=== PATIENT | female | born 1965 | race Caucasian/White ===

== ENCOUNTER → 2018-07-24 08:49 | Outpatient (CLI) | payer BC, SELFPAY ==
[2018-07-24 13:45] LABS: Alanine Aminotransferase 26 U/L (12-78); Albumin Level 3.6 gm/dL (3.4-5.0); Albumin/Globulin Ratio 0.9 (1.1-1.8); Alkaline Phosphatase 95 U/L (46-116); Anion Gap 16.6 mEq/L (5-15); Aspartate Amino Transferase 16 U/L (15-37); Bilirubin,Total 0.4 mg/dL (0.2-1.0); Blood Urea Nitrogen 21 mg/dL (7-18); Calcium 9.8 mg/dL (8.5-10.1); Carbon Dioxide 26 mmol/L (21.0-32.0); Chloride 101 mmol/L (98-107); Chol/HDL Ratio 3.5 (1-3.5); Cholesterol 259 mg/dL (140-200); Creatinine,Serum 0.72 mg/dL (0.55-1.02); Estimated Glomerular Filt Rate 85 ml/min (>60); GFR (African American) 103 ML/MIN (>60); Globulin 3.9 gm/dl (1.3-3.2); Glucose 77 mg/dL (74-106); HDL Cholesterol 75 mg/dL (29-89); LDL Cholesterol 162 mg/dL (0-130); Potassium 4.6 mmoL/L (3.5-5.1); Sodium 139 mmol/L (136-145); Thyroid Stimulating Hormone 2.33 uIU/ml (0.358-3.740); Total Protein,Serum 7.5 gm/dL (6.4-8.2); Triglycerides 108 mg/dL (30-200); VLDL Cholesterol 22 mg/dL (0-40)
== END ==
PROVIDERS: Visit Provider Nurse Practitioner Family
DX: E03.9 Hypothyroidism, unspecified (principal); I10 Essential (primary) hypertension
CPT/HCPCS: 36415; 80053; 80061; 84443

== ENCOUNTER 2021-01-09 09:59 | Emergency (ER) | payer BC, SELFPAY ==
[2021-01-09 10:00] VITALS: BP 137/66; PULSE 65; RESP 18; TEMP 36.7; O2SAT 98; BMI 46.0
--- NOTE | 2021-01-09 10:33 | XR_ITS ---
PROCEDURE INFORMATION: Exam: XR Left Ankle Exam date and time: 01/09/2021 10:33 AM Age: 55 years old Clinical indication: Pain; Foot; Bilateral; Additional info: Fall TECHNIQUE: Imaging protocol: XR Left ankle. Views: 3 or more views. COMPARISON: No relevant prior studies available. FINDINGS: Bones/joints: There is no evidence of acute fracture.There is no evidence of malalignment or dislocation. Soft tissues: The calf is enlarged IMPRESSION: There is no evidence of acute fracture.There is no evidence of malalignment or dislocation.
--- NOTE | 2021-01-09 10:33 | XR_ITS ---
PROCEDURE INFORMATION: Exam: XR Left Tibia and Fibula Exam date and time: 01/09/2021 10:33 AM Age: 55 years old Clinical indication: Pain; Foot; Bilateral; Additional info: Fall TECHNIQUE: Imaging protocol: XR Left tibia and fibula. Views: 2 views. COMPARISON: No relevant prior studies available. FINDINGS: Bones/joints: There is no evidence of acute fracture.There is no evidence of malalignment or dislocation. Soft tissues: The calf is enlarged IMPRESSION: There is no evidence of acute fracture.There is no evidence of malalignment or dislocation.
--- NOTE | 2021-01-09 10:33 | XR_ITS ---
PROCEDURE INFORMATION: Exam: XR Left Foot Exam date and time: 01/09/2021 10:33 AM Age: 55 years old Clinical indication: Injury or trauma; Blunt trauma and fracture, traumatic; Foot; Bilateral; Closed fracture and other: Fall with edema; Right TECHNIQUE: Imaging protocol: XR Left foot. Views: 3 or more views. COMPARISON: No relevant prior studies available. FINDINGS: Bones/joints: Displaced fracture of the neck of the 4th metatarsal. Nondisplaced fractures of the neck of the 2nd and 3rd metatarsals.. Soft tissues: Soft tissue swelling of the foot IMPRESSION: Displaced fracture of the neck of the 4th metatarsal. Nondisplaced fractures of the neck of the 2nd and 3rd metatarsals..
[2021-01-09 11:21] VITALS: BP 137/66; PULSE 65; RESP 18; TEMP 36.7; O2SAT 98
--- NOTE | 2021-01-09 11:28 | HMH.EDUTC ---
[facility] – [place] Disposition Clinical Impression: Foot fracture, left Qualifiers: Encounter type: initial encounter Fracture type: closed Qualified Code(s): S92.902A - Unspecified fracture of left foot, initial encounter for closed fracture Fracture of second metatarsal bone Qualifiers: Encounter type: initial encounter Fracture type: closed Fracture alignment: nondisplaced Laterality: left Qualified Code(s): S92.325A - Nondisplaced fracture of second metatarsal bone, left foot, initial encounter for closed fracture Fracture of third metatarsal bone Qualifiers: Encounter type: initial encounter Fracture type: closed Fracture alignment: nondisplaced Laterality: left Qualified Code(s): S92.335A - Nondisplaced fracture of third metatarsal bone, left foot, initial encounter for closed fracture Fracture of fourth metatarsal bone Qualifiers: Encounter type: initial encounter Fracture type: closed Fracture alignment: displaced Laterality: left Qualified Code(s): S92.342A - Displaced fracture of fourth metatarsal bone, left foot, initial encounter for closed fracture Disposition: Home, Self-Care Condition on Discharge: Good Instructions: How to Use Crutches, Foot Fracture, DI for Foot Fracture Additional Instructions: Rest the extremity, apply ice for 15 minutes as tolerated three or four times per day, Elevate the extremity as tolerated while you are resting. Take ibuprofen for pain. I sent in a prescription to your pharmacy. Follow up with Dr. Driscoll (podiatry) or your swine extension field specialist that you already see. I put in a referral to Dr. Driscoll, you need to call her office and schedule an appointment or schedule one with your victims advocate clerk/specialist. No weight bearing until you are seen by podiatry and told different. Follow up with your regular doctor. GO TO THE ER FOR ANY WORSENING SYMPTOMS Prescriptions: Ibuprofen [Ibuprofen 800mg Tablet] 800 mg PO Q8HP PRN #30 tab PRN Reason: Moderate Pain Transmission Status: Received by [facility] Referrals: Connor Durbin MD [Primary Care Provider] - Brie Driscoll DPM [Staff Physician] - Forms: Work/School Release Time of Disposition: 12:02 Medical Decision Making - Medical Records Medical records reviewed: No: I reviewed the patient's medical records. - Flex Inquiry Pt receiving controlled substance: No Vital Signs: 01/09/21 10:00 01/09/21 11:21 Temperature 98.0 F 98.0 F Temperature Source Oral Pulse Rate 65 Pulse Rate [Right Brachial] 65 Respiratory Rate 18 18 Blood Pressure 137/66 Blood Pressure [Right Arm] 137/66 Blood Pressure Mean [Right Arm] 89 Blood Pressure Source [Right Arm] Automatic Cuff Blood Pressure Position [Right Arm] Sitting 02 Sat by Pulse Oximetry 98 Oxygen Delivery Method Room Air - Radiology Data #1 Image(s): Foot/Toes Image Reviewed: Yes I reviewed the patient's radiology image, Yes I have reviewed radiologist's interpretation Preliminary Findings: Abnormal PROCEDURE INFORMATION: Exam: XR Left Foot Exam date and time: 01/09/2021 10:33 AM Age: 55 years old Clinical indication: Injury or trauma; Blunt trauma and fracture, traumatic; Foot; Bilateral; Closed fracture and other: Fall with edema; Right TECHNIQUE: Imaging protocol: XR Left foot. Views: 3 or more views. COMPARISON: No relevant prior studies available. FINDINGS: Bones/joints: Displaced fracture of the neck of the 4th metatarsal. Nondisplaced fractures of the neck of the 2nd and 3rd metatarsals.. Soft tissues: Soft tissue swelling of the foot IMPRESSION: Displaced fracture of the neck of the 4th metatarsal. Nondisplaced fractures of the neck of the 2nd and 3rd metatarsals.. [facility] [place] HPI - General Stated complaint: a/o 01/07 fell left foot injury Time Seen by Provider: 01/09/21 11:28 Mode of Arrival: Ambulatory Source of Information: Patient, Spouse Limitations: No [place]
== END 2021-01-09 12:27 | disposition home or self-care (01) ==
PROVIDERS: Emergency Provider Nurse Practitioner Family; PCP Internal Medicine Adolescent Medicine
DX: S92.325A Nondisplaced fracture of second metatarsal bone, left foot, initial encounter for closed fracture (principal); S92.335A Nondisplaced fracture of third metatarsal bone, left foot, initial encounter for closed fracture; S92.342A Displaced fracture of fourth metatarsal bone, left foot, initial encounter for closed fracture; W10.8XXA Fall (on) (from) other stairs and steps, initial encounter; Y92.89 Other specified places as the place of occurrence of the external cause; F33.1 Major depressive disorder, recurrent, moderate; I10 Essential (primary) hypertension
CPT/HCPCS: 29515; 73590; 73610; 73630; 99203; G0463

== ENCOUNTER 2021-08-13 08:19 | Emergency (ER) | payer BC, SELFPAY ==
[2021-08-13] VITALS (7 sets, daily range): BP systolic 118–165; BP diastolic 75–85; PULSE 80–94; RESP 16; TEMP 36.9–37.2; O2SAT 94–99; BMI 53.1
--- NOTE | 2021-08-13 08:42 | XR_ITS ---
PROCEDURE INFORMATION: Exam: XR Chest Exam date and time: 08/13/2021 8:42 AM Age: 55 years old Clinical indication: Shortness of breath; Additional info: Covid positive, SOA TECHNIQUE: Imaging protocol: XR of the chest. Views: 1 view. COMPARISON: CR CXR2V XR chest 2V 11/28/2017 11:35 AM FINDINGS: Lungs: Unremarkable. No consolidation. Pleural spaces: Unremarkable. No pleural effusion. No pneumothorax. Heart/Mediastinum: Unremarkable. No cardiomegaly. Bones/joints: Unremarkable. IMPRESSION: No acute cardiopulmonary disease.
--- NOTE | 2021-08-13 08:47 | HMH.EDGENADL ---
ED Disposition Clinical Impression: COVID-19 virus infection Asthma exacerbation Qualifiers: Asthma severity: moderate Asthma persistence: persistent Qualified Code(s): J45.41 - Moderate persistent asthma with (acute) exacerbation Disposition: Home, Self-Care Condition on Discharge: Good Instructions: DI for Asthma -- Adult, DI for COVID-19 (Suspected or Confirmed ) Additional Instructions: Prednisone as prescribed. Continue nebulizer treatments. Follow-up with your primary care provider if not improving in 1 to 2 days. COVID-19 Isolation: People with COVID-19 should isolate for 5 days. Then if they are asymptomatic (no symptoms) or their symptoms are resolving (without fever for 24 hours), follow that by 5 days of wearing a mask when around others to minimize the risk of infecting people you encounter. If you test positive for COVID-19 and never develop symptoms, day 0 is the day of your positive viral test (based on the date you were tested) and day 1 is the first full day after your positive test. If you develop symptoms after testing positive, your 5-day isolation period must start over. Day 0 is your first day of symptoms. Day 1 is the first full day after your symptoms developed. What to do: Monitor your symptoms. If you have an emergency warning sign (including trouble breathing), seek emergency medical care immediately. Stay in a separate room from other household members, if possible. Use a separate bathroom, if possible. Avoid contact with other members of the household and pets. Don?t share personal household items, like cups, towels, and utensils. Wear a mask when around other people if able. Prescriptions: predniSONE [Prednisone 20mg Tab] 20 mg PO BID #10 tab Transmission Status: Pending to [facility] Referrals: Connor Durbin MD [Primary Care Provider] - - Critical Care Critical Care Time: No Attestation: On 08/13/21, the high probability of a clinically significant, sudden or life threatening deterioration of the following system(s) required my full and direct attention, intervention and personal management. The time I documented below is in addition to time spent performing reported procedures but includes the following listed in this critical care notation. Medical Decision Making - Flex Inquiry Pt receiving controlled substance: No Vital Signs: 08/13/21 08:20 Temperature 99.0 F Temperature Source Oral Pulse Rate [Left Radial] 94 H Respiratory Rate 16 Blood Pressure [Left Arm] 141/80 H Blood Pressure Mean [Left Arm] 100 Blood Pressure Source [Left Arm] Automatic Cuff Blood Pressure Position [Left Arm] Sitting 02 Sat by Pulse Oximetry 99 Oxygen Delivery Method Room Air - Lab Data Lab Results 08/13/21 08:50: WBC 7.2, RBC 4.89, Hgb 13.2, Hct 42.0, MCV 86.0, MCH 26.9 L, MCHC 31.3 L, RDW 15.4, Plt Count 308, MPV 8.4, Neut % (Auto) 57.9, Lymph % (Auto) 32.3, Carroll % (Auto) 5.9, Eos % (Auto) 2.5, Baso % (Auto) 1.5, Neut # (Auto) 4.2, Lymph # (Auto) 2.3, Carroll # (Auto) 0.4, Eos # (Auto) 0.2, Baso # (Auto) 0.1 08/13/21 08:50: Sodium 136, Potassium 3.8, Chloride 98, Carbon Dioxide 31 H, Anion Gap 10.8, BUN 13, Creatinine 0.80, Estimated Creat Clear 67, Estimated GFR 75, Est GFR ( Amer) 90, Glucose 106 H, Calcium 10.8 H, Total Bilirubin 0.5, AST 23, ALT 18, Alkaline Phosphatase 123, Total Protein 7.7, Albumin 4.3, Globulin 3.4 H, Albumin/Globulin Ratio 1.3 Result diagrams: 08/13/21 08:50 08/13/21 08:50 Orders (Tests/Meds): ED MEDICATIONS Generic Name Dose Route Start Last Admin Trade Name Anselmo PRN Reason Stop Dose Admin Diphenhydramine HCl 25 mg 08/13/21 09:45 Diphenhydramine 50mg/Ml Vial IV 08/13/21 16:00 ONCE PRN INFUSION REACTION Hydrocortisone Sodium Succinate 100 mg 08/13/21 09:45 Hydrocortisone Sod Succinate 100mg Vial IV 08/13/21 16:00 ONCE PRN INFUSION REACTION Sodium Chloride 1,000 mls @ 100 ml
[2021-08-13 08:59] LABS: Basophils # 0.1 K/mm3 (0-0.2); Basophils % 1.5 % (0.1-2.0); Eosinophils # 0.2 K/mm3 (0.0-0.4); Eosinophils % 2.5 % (0.1-12.0); Hemoglobin 13.2 g/dL (12.2-16.2); Lymphocytes # 2.3 K/mm3 (0.7-4.5); Lymphocytes % 32.3 % (10-50); Mean Corpuscular HGB Conc 31.3 g/dL (31.8-35.4); Mean Corpuscular Hemoglobin 26.9 pg (27.0-31.2); Mean Platelet Volume 8.4 fl (7.4-10.4); Monocytes # 0.4 K/mm3 (0.1-1.0); Monocytes % 5.9 % (1.7-9.3); Neutrophils # 4.2 K/mm3 (1.8-7.8); Neutrophils % 57.9 % (37.0-80.0); Platelet Count 308 K/mm3 (142-424); Red Blood Count 4.89 M/mm3 (4.20-5.40); Red Cell Distribution Width 15.4 % (11.5-17.5); White Blood Count 7.2 K/mm3 (4.8-10.8)
[2021-08-13 09:08] LABS: Alanine Aminotransferase 18 U/L (12-78); Albumin Level 4.3 g/dl (3.5-5.0); Albumin/Globulin Ratio 1.3 (1.1-1.8); Alkaline Phosphatase 123 U/L (38-126); Anion Gap 10.8 mEq/L (5-15); Aspartate Amino Transferase 23 U/L (14-36); Bilirubin,Total 0.5 mg/dl (0.2-1.3); Blood Urea Nitrogen 13 mg/dl (7-17); Calcium 10.8 mg/dl (8.4-10.2); Carbon Dioxide 31 mmol/L (22.0-30.0); Chloride 98 mmol/L (98-107); Creatinine Clearance Estimated 67 mL/min (50-200); Estimated Glomerular Filt Rate 75 ml/min (>60); GFR (African American) 90 ML/MIN (>60); Globulin 3.4 g/dL (1.3-3.2); Glucose 106 mg/dl (74-100); Potassium 3.8 mmoL/L (3.5-5.1); Sodium 136 mmol/L (136-145); Total Protein,Serum 7.7 g/dl (6.3-8.2)
--- NOTE | 2021-08-13 10:18 | PC.NURSE ---
Sotrovimab infusion being administered at this time while an ER pt.
== END 2021-08-13 12:15 | disposition home or self-care (01) ==
PROVIDERS: Emergency Provider Emergency Medicine; PCP Internal Medicine Adolescent Medicine
DX: J45.41 Moderate persistent asthma with (acute) exacerbation (principal); U07.1 COVID-19
CPT/HCPCS: 71045; 80053; 85025; 96365; 96375; 99283

== ENCOUNTER 2021-11-15 09:33 | Emergency (ER) | payer OTHER, BC, SELFPAY ==
[2021-11-15 09:35] VITALS: BP 149/75; PULSE 87; RESP 18; TEMP 36.7; O2SAT 98; BMI 53.1
--- NOTE | 2021-11-15 09:45 | XR_ITS ---
FINAL REPORT CLINICAL HISTORY: TWISTED IT WHILE WALKING COMPARISON: 01/09/2021 FINDINGS: LEFT ANKLE: Three views of the left ankle were obtained. There is a horizontal lucency through the lateral malleolus worrisome for a nondisplaced fracture. There are mild degenerative changes. There is a plantar calcaneal spur. There is no soft tissue abnormality. IMPRESSION: Lucency through the lateral malleolus worrisome for a nondisplaced fracture. Reviewed, Interpreted and Dictated by Mitul Rey III, MD Transcribed by Venkat Keller Authenticated by Mitul Rey III, MD on 11/15/2021 11:30:03 AM [facility]
--- NOTE | 2021-11-15 09:57 | HMH.EDUTC ---
[facility] [place] Clinical Impression: Ankle sprain Qualifiers: Encounter type: initial encounter Involved ligament of ankle: unspecified ligament Laterality: left Qualified Code(s): S93.402A - Sprain of unspecified ligament of left ankle, initial encounter Disposition: Home, Self-Care Condition on Discharge: Good Instructions: How to Use Crutches, Ankle Sprain, DI for Ankle Sprain, How to Use a Walking Boot Additional Instructions: *weight bearing as tolerated and use crutches to ambulate *RICE, Rest the extremity, Ice 15-20 minutes 3-4 times daily, Compress- wear the cassie wrap as discussed as much as possible to help reduce swelling and pain, Elevate the extremity when at rest *Walking boot is for support and help control swelling, use it except in the shower. Be sure that is not to tight but not to loose either *Elevate when resting *Ibuprofen as directed on package every 6-8 hours as needed for pain an inflammation. If need something more can take Tylenol in between doses of Ibuprofen to help Immediately follow up with your family doctor for new or worsening of symptoms, or no noticeable improvement over the next 3-5 days Stay off foot for next 3-5 days Return if needed follow up with Podiatry or Orthopedics if needed Straight to ER if any life threatening symptoms Referrals: Connor Durbin MD [Primary Care Provider] - As needed Brie Driscoll DPM [Staff Physician] - As needed Diego Sheridan MD [Staff Physician] - Forms: Work/School Release Time of Disposition: 10:15 Medical Decision Making - Flex Inquiry Pt receiving controlled substance: No Flex was queried for this patient: No Vital Signs: 11/15/21 09:35 11/15/21 10:12 Temperature 98.1 F 98.1 F Temperature Source Oral Pulse Rate 87 Pulse Rate [Right Brachial] 87 Respiratory Rate 18 18 Blood Pressure 149/75 H Blood Pressure [Right Arm] 149/75 H Blood Pressure Mean [Right Arm] 99 Blood Pressure Source [Right Arm] Automatic Cuff Blood Pressure Position [Right Arm] Sitting 02 Sat by Pulse Oximetry 98 Oxygen Delivery Method Room Air - Radiology Data #1 Image(s): Ankle Image Reviewed: Yes I reviewed the patient's radiology image area noted on lateral malleolus suspicious for non displaced fracture will place in boot, crutches and wait for official radiology reading Medical Decision Narrative: Patient states that she has a walking boot and crutches at home from previous accident [facility] [place] - General Stated complaint: AO 4/6 fall lt ankle pain Time Seen by Provider: 11/15/21 09:40 Mode of Arrival: Ambulatory Source of Information: Patient Limitations: No Limitations Description of Symptoms (Recalled from Triage Doc. by RN): PATIENT REPORTS SHE WAS WALKING ACROSS THE PARKING LOT THIS AM AND TWISTED HER LEFT ANKLE HEENT Symptoms (Recalled from RN notes): No Resp Symptoms (Recalled from RN notes): No Skin Symptoms (Recalled from RN notes): No MS Symptoms (Recalled from RN notes): Yes Functional Status (Recalled from RN notes): WNL - History of Present Illness Provider Complaint: Patient states that she was walking accross the parking lot this morning when she twisted her left ankle States that every since she has been having pain and swelling in her left ankle so she came in to get it checked out - Related Data Home Medications Medication Instructions Recorded Confirmed Aspirin [Aspir 81] 81 mg PO DAILY 11/28/17 11/28/17 Bisoprolol/Hydrochlorothiazide 1 each PO DAILY 11/28/17 11/28/17 [Bisoprolol-Hctz 10-6.25 mg Tab] Fluticasone/Vilanterol [Breo 1 each IH DAILY 11/28/17 11/28/17 Ellipta 100-25 Mcg INH] Levothyroxine Sodium [Synthroid 0 mcg PO DAILY 11/28/17 11/28/17 25mcg (0.025mg) tablet] Montelukast Sodium [Singulair 10mg 10 mg PO PM 11/28/17 11/28/17 tablet] Vit D3/Folic Acid/B2/B6/B12 1 each PO DAILY 11/28/17 11/28/17 [Folgard Tablet] buPROPion HCL [Wellbutrin Xl] 150 mg PO DAILY 11/28/17 11/28/17 Previou
[2021-11-15 10:12] VITALS: BP 149/75; PULSE 87; RESP 18; TEMP 36.7; O2SAT 98
== END 2021-11-15 10:21 | disposition home or self-care (01) ==
PROVIDERS: Emergency Provider Nurse Practitioner; PCP Internal Medicine Adolescent Medicine
DX: S93.402A Sprain of unspecified ligament of left ankle, initial encounter (principal); I10 Essential (primary) hypertension; E07.9 Disorder of thyroid, unspecified; J45.909 Unspecified asthma, uncomplicated; F32.A Depression, unspecified; Z79.51 Long term (current) use of inhaled steroids; Z79.52 Long term (current) use of systemic steroids; Z79.82 Long term (current) use of aspirin; Z79.899 Other long term (current) drug therapy; Z88.8 Allergy status to other drugs, medicaments and biological substances; X50.1XXA Overexertion from prolonged static or awkward postures, initial encounter
CPT/HCPCS: 73610; 99213; G0463

== ENCOUNTER 2022-04-02 07:07 | Emergency (ER) | payer BC, SELFPAY ==
[2022-04-02] VITALS (10 sets, daily range): BP systolic 136–167; BP diastolic 76–98; PULSE 73–90; RESP 16–18; TEMP 36.8; O2SAT 94–98; BMI 54.9
--- NOTE | 2022-04-02 07:12 | ECG_ITS ---
APPROVED REPORT Exam: Resting ECG HR:84 bpm ECG Measurements Heart Rate [address] 169 P 139 QRSd 77 QRS 119 QT 323 T 124 QTc 365 Conclusion Sinus RHYTHM POSSIBLE RIGHT VENTRICULAR HYPERTROPHY with late r wave progression UNCONFIRMED REPORT Electronically signed by : Connor Durbin MD 04/03/2022 21:28:30
--- NOTE | 2022-04-02 07:17 | XR_ITS ---
FINAL REPORT TECHNIQUE: Chest PA & Lateral CLINICAL HISTORY: shortness of breath, covid+ 7 days ago COMPARISON: 08/13/2021 FINDINGS: 2 views of the chest were performed. The heart size is mildly enlarged. The mediastinum is within normal limits. There is patchy airspace opacity at the left lung base which may represent a small focus of pneumonia. There is scarring or atelectasis in the right lung base. There is no pneumothorax. The bony thorax appears intact. IMPRESSION: Patchy airspace opacity in the left lung base may represent a small focus of pneumonia. Reviewed, Interpreted and Dictated by Jared Camara MD Transcribed by Jessa Leyva Authenticated and . [facility]
--- NOTE | 2022-04-02 07:23 | PC.NURSE ---
Notified crystal in radiology of xray order
--- NOTE | 2022-04-02 07:26 | PC.NURSE ---
pt ambulatory to xray with pelt grader; no complications
[2022-04-02 07:29] LABS: Basophils # 0.1 K/mm3 (0-0.2); Basophils % 0.5 % (0.1-2.0); Eosinophils # 0.1 K/mm3 (0.0-0.4); Eosinophils % 0.5 % (0.1-12.0); Hematocrit 40.3 % (37.0-47.0); Hemoglobin 12.6 g/dL (12.2-16.2); Lymphocytes # 2.6 K/mm3 (0.7-4.5); Lymphocytes % 17.3 % (10-50); Mean Corpuscular HGB Conc 31.3 g/dL (31.8-35.4); Mean Corpuscular Hemoglobin 26.7 pg (27.0-31.2); Mean Corpuscular Volume 85.4 fl (81-99); Mean Platelet Volume 7.8 fl (7.4-10.4); Monocytes # 0.6 K/mm3 (0.1-1.0); Monocytes % 3.9 % (1.7-9.3); Neutrophils # 11.7 K/mm3 (1.8-7.8); Neutrophils % 77.8 % (37.0-80.0); Platelet Count 437 K/mm3 (142-424); Red Blood Count 4.72 M/mm3 (4.20-5.40); Red Cell Distribution Width 15.6 % (11.5-17.5)
--- NOTE | 2022-04-02 07:30 | PC.NURSE ---
Addendum entered by Johanna Cook RN 04/02/22 12:51: actual time was 0735 Original Note: pt and family updated about plans, no needs at this time
[2022-04-02 07:31] LABS: MANUAL DIFFERENTIAL MANUAL DIFFERENTIAL (MANUAL DIFF)
--- NOTE | 2022-04-02 07:33 | PC.NURSE ---
pt returned from radiology with waste handling technician, no complications
[2022-04-02 07:36] LABS: Alanine Aminotransferase 32 U/L (12-78); Albumin Level 4.1 g/dl (3.5-5.0); Albumin/Globulin Ratio 1.1 (1.1-1.8); Alkaline Phosphatase 155 U/L (38-126); Anion Gap 12.5 mEq/L (5-15); Aspartate Amino Transferase 26 U/L (14-36); Blood Urea Nitrogen 19 mg/dl (7-17); Calcium 11.3 mg/dl (8.4-10.2); Carbon Dioxide 28 mmol/L (22.0-30.0); Chloride 103 mmol/L (98-107); Estimated Glomerular Filt Rate 87 ml/min (>60); GFR (African American) 105 ML/MIN (>60); Globulin 3.8 g/dL (1.3-3.2); Glucose 105 mg/dl (74-100); Potassium 3.5 mmoL/L (3.5-5.1); Sodium 140 mmol/L (136-145); Total Protein,Serum 7.9 g/dl (6.3-8.2)
[2022-04-02 07:37] LABS: Bilirubin,Total < 0.1 mg/dl (0.2-1.3)
[2022-04-02 07:41] LABS: Lymphocytes % 15 % (10-50); Monocytes % 4 % (2-9); Neutrophils % 81 % (42-76); Platelet Estimate Slight Increase; RBC Morphology Normal; Total Cells Counted 100
[2022-04-02 07:51] LABS: Troponin I < 0.01 ng/ml (0.00-0.034)
[2022-04-02 08:09] LABS: Lactic Acid 2.1 mmol/L (0.7-2.1)
--- NOTE | 2022-04-02 08:10 | PC.NURSE ---
pt sitting in bed, no needs at this time
--- NOTE | 2022-04-02 08:34 | HMH.EDSOB ---
ED Disposition Clinical Impression: Community acquired pneumonia Qualifiers: Laterality: left Lung location: unspecified part of lung Qualified Code(s): J18.9 - Pneumonia, unspecified organism Asthma with exacerbation Qualifiers: Asthma severity: mild Asthma persistence: unspecified Qualified Code(s): J45.901 - Unspecified asthma with (acute) exacerbation Disposition: Home, Self-Care Condition on Discharge: Good Instructions: Pneumonia-Adult Additional Instructions: Return for worsening shortness of air or other concerns. Off work through and including April 08. Your albuterol nebulizer every 4 hours as needed for shortness of air. Tylenol as needed for fever. Drink plenty of fluids. Avoid exertion. Prescriptions: Albuterol Sulfate [Albuterol 0.083% 2.5mg/3mL neb] 2.5 mg IH Q4-6H PRN 30 Days ml PRN Reason: Dyspnea Albuterol Sulfate [Albuterol 0.083% 2.5mg/3mL neb] 2.5 mg IH Q4-6H #30 each Transmission Status: Received by [facility] Benzonatate [Benzonatate 100mg cap] 100 mg PO BID 10 Days #20 cap Transmission Status: Received by [facility] Doxycycline Monohydrate 100 mg PO BID 10 Days #20 cap Transmission Status: Received by [facility] predniSONE [Prednisone 20mg Tab] 40 mg PO DAILY #7 tab Transmission Status: Received by [facility] Referrals: Connor Durbin MD [Primary Care Provider] - - Critical Care Critical Care Time: No Attestation: On 04/02/22, the high probability of a clinically significant, sudden or life threatening deterioration of the following system(s) required my full and direct attention, intervention and personal management. The time I documented below is in addition to time spent performing reported procedures but includes the following listed in this critical care notation. Medical Decision Making - Medical Records Medical records reviewed: Yes: I reviewed the patient's medical records. - Flex Inquiry Pt receiving controlled substance: No Vital Signs: 04/02/22 07:07 04/02/22 07:32 04/02/22 07:42 Temperature 98.3 F Temperature Source Oral Pulse Rate 87 74 Pulse Rate [Left Radial] 85 Respiratory Rate 18 Blood Pressure 167/93 H Blood Pressure [Right Arm] 151/98 H Blood Pressure Mean Blood Pressure Mean [Right Arm] 115 Blood Pressure Source Automatic Cuff Blood Pressure Source [Right Arm] Automatic Cuff Blood Pressure Position Sitting Blood Pressure Position [Right Arm] Sitting 02 Sat by Pulse Oximetry 95 95 94 L Oxygen Delivery Method Room Air Room Air Room Air 04/02/22 07:56 04/02/22 08:00 04/02/22 08:30 Temperature Temperature Source Pulse Rate 80 79 73 Pulse Rate [Left Radial] Respiratory Rate Blood Pressure 167/93 H 162/86 H 152/89 H Blood Pressure [Right Arm] Blood Pressure Mean 117 111 108 Blood Pressure Mean [Right Arm] Blood Pressure Source Blood Pressure Source [Right Arm] Blood Pressure Position Blood Pressure Position [Right Arm] 02 Sat by Pulse Oximetry 96 97 96 Oxygen Delivery Method 04/02/22 09:00 04/02/22 09:30 04/02/22 10:00 Temperature Temperature Source Pulse Rate 74 73 90 Pulse Rate [Left Radial] Respiratory Rate Blood Pressure 136/76 148/83 H 156/81 H Blood Pressure [Right Arm] Blood Pressure Mean 96 105 102 Blood Pressure Mean [Right Arm] Blood Pressure Source Blood Pressure Source [Right Arm] Blood Pressure Position Blood Pressure Position [Right Arm] 02 Sat by Pulse Oximetry 98 97 97 Oxygen Delivery Method Room Air 04/02/22 10:27 Temperature 98.3 F Temperature Source Pulse Rate 75 Pulse Rate [Left Radial] Respiratory Rate 16 Blood Pressure 156/81 H Blood Pressure [Right Arm] Blood Pressure Mean Blood Pressure Mean [Right Arm] Blood Pressure Source Automatic Cuff Blood Pressure Source [Right Arm] Blood Pressure Position Sitting Blood Pressure Position [Right Arm] 02 Sat by P
[2022-04-02 08:38] LABS: D-Dimer 0.39 ug/mL (0.0-0.5)
[2022-04-02 08:49] LABS: Coronavirus 19, PCR Not Detected (NotDetected); Influenza A, PCR Not Detected (NotDetected); Influenza B, PCR Not Detected (NotDetected)
[2022-04-02 08:57] LABS: INR 0.95 (0.9-1.1); Prothrombin Time 10.8 seconds (10.1-12.5)
--- NOTE | 2022-04-02 09:15 | PC.NURSE ---
Notified respiratory regarding medication change. Spoke with Chichi
--- NOTE | 2022-04-02 09:47 | PC.NURSE ---
ER MD at BS speaking with patient regarding update on POC/results. Spouse at BS
--- NOTE | 2022-04-02 10:17 | PC.NURSE ---
patient receiving IV antibiotics at this time
[2022-04-02 11:59] LABS: Reflex Lactic Add Lactic Reflex
== END 2022-04-02 10:30 | disposition home or self-care (01) ==
PROVIDERS: Emergency Provider Emergency Medicine; PCP Internal Medicine Adolescent Medicine
DX: J18.9 Pneumonia, unspecified organism (principal); J45.901 Unspecified asthma with (acute) exacerbation; J02.9 Acute pharyngitis, unspecified; I10 Essential (primary) hypertension; U07.1 COVID-19; E07.9 Disorder of thyroid, unspecified; Z20.822 Contact with and (suspected) exposure to COVID-19; F32.A Depression, unspecified; Z79.51 Long term (current) use of inhaled steroids; Z79.52 Long term (current) use of systemic steroids; Z79.82 Long term (current) use of aspirin; Z79.899 Other long term (current) drug therapy; Z88.8 Allergy status to other drugs, medicaments and biological substances
CPT/HCPCS: 71046; 80053; 83605; 83880; 84484; 85007; 85025; 85378; 85610; 87040; 93005; 96372; 99284; 99285; C9803; J0696; U0003; U0005

== ENCOUNTER 2023-05-29 18:21 | Emergency (ER) | payer BC, SELFPAY ==
[2023-05-29 18:22] VITALS: BP 144/77; PULSE 104; RESP 26; TEMP 37.1; O2SAT 93; BMI 54.6
--- NOTE | 2023-05-29 18:56 | XR_ITS ---
PROCEDURE INFORMATION: Exam: XR Chest Exam date and time: 05/29/2023 7:01 PM Age: 57 years old Clinical indication: Cough TECHNIQUE: Imaging protocol: Radiologic exam of the chest. Views: 2 views. COMPARISON: CR XR CHEST 2V 02/04/2022 07:18 FINDINGS: Airway: Widespread airway thickening. Lungs: Patchy left lung atelectasis and opacities. Pleural spaces: Unremarkable. No pleural effusion. No pneumothorax. Heart/Mediastinum: Upper limits of normal heart size. Bones/joints: Unremarkable. IMPRESSION: 1. Widespread airway thickening. Please correlate for evidence of viral infection or asthma. 2. Patchy left lung atelectasis and opacities. Consider pneumonia and aspiration pneumonitis. If there is no evidence of infection or of the patient is at high risk for pulmonary malignancy, consider contrast-enhanced CT to exclude malignancy.
--- NOTE | 2023-05-29 18:57 | EXP.UTC ---
Discharge Plan Disposition Patient Disposition: Home, Self-Care Condition: Good Prescriptions Prescriptions: New methylprednisolone [Medrol (Jessee)] 4 mg tablets,dose pack See Rx Instructions .Route .COMPLEX 6 Days Qty: 21 0RF Rx Instructions: taper pack; cefdinir 300 mg capsule 300 mg PO BID Qty: 20 0RF azithromycin [Zithromax Z-Jessee] 250 mg tablet See Rx Instructions .ROUTE .COMPLEX 5 Days Qty: 6 0RF Rx Instructions: For 250 mg dose pack: take 500 mg today (day 1), then 250 mg for 4 days (days 2-5) No Action bisoprolol-hydrochlorothiazide 1 EACH tablet 1 ea PO DAILY aspirin [Aspir-81] 81 MG tablet,delayed release (DR/EC) 81 mg PO DAILY levothyroxine [Synthroid] 25 MCG tablet 25 mcg PO DAILY montelukast 10 MG tablet 10 mg PO PM bupropion HCl [Wellbutrin XL] 150 MG tablet extended release 24 hr 150 mg PO DAILY Folgard 1 EACH tablet 1 ea PO DAILY ipratropium-albuterol 3 ML solution for nebulization 3 ml IH Q6HP PRN (Reason: Shortness Of Breath) 5 Days Qty: 120 0RF albuterol sulfate 2.5 MG/NEB solution for nebulization 2.5 mg IH Q4-6H Qty: 30 0RF Trelegy Ellipta 100-62.5-25 mcg Blister With Device 1 inh INHALATION DAILY Referrals Follow up/Referrals: Connor Durbin MD [Primary Care Provider] - See instructions Activity Restrictions/Add. Instructions Additional Instructions/Restrictions: Start antibiotic today. Be sure to complete entire prescription even if feeling better Monitor temp. Tylenol every 4 hours as needed and / or ibuprofen every 6 hours as needed ( As long as your primary care physician has told you that it ok to take both. For fever/aches/pains ER if no less than 101 despite Tylenol or Motrin Humidifier/vaporizer or hot steamy shower Inhaler every 4-6 hours as needed like we discussed. If unsure how to use it, ask pharmacist to demonstrate how. Should help open airways and improve cough, wheezing, and shortness of breath *Promethazine DM cough syrup will cause drowsiness. No driving, operating machinery or caring for small children after taking it Use your Neb treatments as prescribed *Tessalon Perles will not cause drowsiness but use at bedtime to help stop cough so that you may get some rest. *Start steroid tomorrow. Helps with inflammation therefore, cough and wheezing. Follow directions on the package. Reviewed side effects. Patient reports taking them before. Follow up with your Family Doctor for follow up in a couple of weeks or sooner if no improvement Follow up IMMEDIATELY for new or worsening of symptoms OR no noticeable improvement over the next 48-72 hours. 911 immediately for any life threatening symptoms such as chest pain or difficulty breathing Clinical Impressions Clinical Impression: Pneumonia Qualifiers: Pneumonia type: due to unspecified organism Laterality: left Lung location: unspecified part of lung Qualified Code(s): J18.9 - Pneumonia, unspecified organism Instructions Patient Instructions: Pneumonia-Adult, Azithromycin, Cefdinir Discharge ED Provider: Eve Hou [facility] General Stated complaint: fever, SOA Mode of Arrival: Ambulatory Source of Information: Patient Limitations: No Limitations Time Seen by Provider: 05/29/23 18:57 Description of Symptoms (Recalled from Triage Doc. by RN): strugglinh to breath, and flu like symptoms HEENT Symptoms (Recalled from RN notes): Yes Resp Symptoms (Recalled from RN notes): No Skin Symptoms (Recalled from RN notes): No MS Symptoms (Recalled from RN notes): No Functional Status (Recalled from RN notes): n/a History of Present Illness Provider Complaint: Patient states that she has been having fever, chills and body aches, states that she seen her PCP about a few days ago and he give her a Steriod shot and give her some nebulizer treatments for at home because she was out States that she has a history
[2023-05-29 19:05] LABS: UTC Influenza A Antigen Negative (Negative); UTC Influenza B Antigen Negative (Negative)
[2023-05-29 20:22] VITALS: BP 144/77; PULSE 104; RESP 20; TEMP 37.1; O2SAT 96
== END 2023-05-29 20:22 | disposition home or self-care (01) ==
PROVIDERS: Emergency Provider Nurse Practitioner; PCP Internal Medicine Adolescent Medicine
DX: J18.9 Pneumonia, unspecified organism (principal); R07.1 Chest pain on breathing; R50.9 Fever, unspecified; J45.909 Unspecified asthma, uncomplicated
CPT/HCPCS: 71046; 87635; 87804; 96372; 99212; 99214; G0463; J0696

== ENCOUNTER 2023-12-04 08:43 | Day surgery (SDC) | payer BC, SELFPAY ==
[2023-12-02 10:00] VITALS: BMI 54.9
[2023-12-04 09:20] VITALS: BP 139/76; PULSE 70; RESP 18; TEMP 36.2; O2SAT 98
[2023-12-04] MEDS: LACTATED RINGERS 1000ML 1,000 ML 100 ML IV (09:24)
--- NOTE | 2023-12-04 09:48 | HMH.SCOPE ---
Procedure: Date: 12/04/23 Patient Date of :: 1965 Procedure Performed:: Colonoscopy Indications:: The patient is a 58-year-old who presents for screening colonoscopy Performing Provider:: Chris Olguin MD Referring Provider:: Александр Durbin MD Sedation:: See RN records Procedure:: After placing the patient in the left lateral decubitus position, the colonoscopy was gently inserted into the rectum and under direct visualization advanced to the cecum which was identified by transillumination in the right lower quadrant, identification of the ileocecal valve, appendiceal orifice, and cecal strap. Color, texture, mucosa, and anatomy of the colon were carefully examined with the scope. The colonoscopy was technically difficult secondary to patient body habitus, the patient was difficult to sedate, and became combative during the procedure. Findings:: The quality of the bowel preparation was good. In the ascending colon there was a polyp measuring approximately 10 mm in size. The polyp was sessile. Polyp was removed with a hot snare polypectomy. It was retrieved with a Knowles net. There was a diminutive polyp in the upper rectum. Polyp was removed with a cold forceps. There was mild diverticulosis of the sigmoid colon. Colon appeared normal. Internal hemorrhoids were seen on retroflexion view of the rectum. Impression: Polyp of the ascending colon and rectum Recommendations:: Await pathology results Repeat colonoscopy in 3 years Complications:: None Estimated blood obtained (mL): 0 Colonoscopy Component Colonoscopy Component Was a colonoscopy performed during today's procedure?: Yes Recommended follow up colonoscopy of at least 10 years?: Yes
[2023-12-04 10:01] VITALS: O2SAT 98
--- NOTE | 2023-12-04 10:02 | EXP.ANES.CKL ---
[facility] Disclaimer: The information contained in this section may have been updated after the patient was seen, as this information can be updated by other users. Medical History Pneumonia Bronchitis Asthma Sinus headache Anxiety and depression History of gastroesophageal reflux (GERD) Hemorrhoid Hypothyroid Allergies Surgical History H/O gastric sleeve History of cholecystectomy Family History Other Asthma Cancer Hypertension Social History Smoking Status: Never smoker second hand exposure: No alcohol intake: current substance use type: denies use current occupational status: employed Travel in the last 8 weeks: None household members: spouse housing: house [facility] Anesthesia Checklist Patient Identification Patient Identification: Verbal (Name & ) Structural Data Admitted From: Home Planned Operative Procedure/s: colonoscopy Consent for Planned Operative Procedure(s) Verified: Yes Airway Assessment Mallampati Score:: Class III C-Spine Mobility Assessed: Yes TMJ Mobility Assessed: Yes Dentition: Good Dentition Neurological Assessment Level of Consciousness: Awake, Alert and Appropriate Anesthesia Plan Anesthesia Risk discussed: Yes Anesthesia Plan: Verified ASA Class: III Anesthesia Type: MAC
[2023-12-04 10:32] VITALS: BP 127/67; PULSE 94; RESP 14; TEMP 36.2; O2SAT 96
[2023-12-04 10:42] VITALS: BP 150/71; PULSE 80; RESP 16; O2SAT 99
[2023-12-04 10:52] VITALS: BP 126/68; PULSE 72; RESP 18; O2SAT 98
[2023-12-04 11:02] VITALS: BP 134/61; PULSE 77; RESP 18; O2SAT 99
== END 2023-12-04 11:03 | disposition home or self-care (01) ==
PROVIDERS: PCP Internal Medicine Adolescent Medicine; Visit Provider Internal Medicine
PROC: (CPT 45385; principal; 2023-12-04 10:00)
DX: Z12.11 Encounter for screening for malignant neoplasm of colon (principal); K57.30 Diverticulosis of large intestine without perforation or abscess without bleeding; K64.8 Other hemorrhoids; D12.2 Benign neoplasm of ascending colon; D12.8 Benign neoplasm of rectum
CPT/HCPCS: 45385; 45380; J2704

== ENCOUNTER 2023-12-31 13:00 | Outpatient (CLI) | payer BC, SELFPAY ==
--- NOTE | 2023-12-31 13:04 | XR_ITS ---
FINAL REPORT CLINICAL HISTORY: LUMBAGO W/SCIATICA,CHRONIC PAIN COMPARISON: None FINDINGS: 5 views of the lumbar spine were obtained. There is no evidence of fracture or dislocation. The vertebral alignment is normal. There is moderate degenerative disc disease present at the L4-5 level. There is dense sclerosis of the lumbar facets. No paraspinous soft tissue abnormalities identified. IMPRESSION: Moderate degenerative disc disease at the L4-5 level. Reviewed, Interpreted and Dictated by Jared Camara MD Transcribed by Margret Tee Authenticated and [facility]
== END 2023-12-31 23:59 | disposition home or self-care (01) ==
LOC: RAD 13:01
PROVIDERS: PCP Nurse Practitioner Family; Visit Provider Nurse Practitioner Family
DX: M54.42 Lumbago with sciatica, left side (principal); G89.29 Other chronic pain
CPT/HCPCS: 72110

== ENCOUNTER 2024-01-10 14:04 | Outpatient (CLI) | payer BC, SELFPAY ==
--- NOTE | 2024-01-10 14:04 | CT_ITS ---
FINAL REPORT TECHNIQUE: Axial images were obtained from the lung apex to the mid abdomen by computed tomography. Coronal and sagittal reformatted images were obtained. This study was performed with techniques to keep radiation doses as low as reasonably achievable, (ALARA). Individualized dose reduction techniques using automated exposure control or adjustment of mA and/or kV according to the patient''s size were employed. CLINICAL HISTORY: Abnormal CXR COMPARISON: 05/29/2023 chest x-ray FINDINGS: A few small and borderline in size mediastinal nodes are present. No mediastinal mass or adenopathy is identified. No axillary mass or adenopathy is seen.There is no pericardial or pleural effusion. No pulmonary mass or suspicious nodule is identified. There is mild scarring in the lung bases. No localized pulmonary inflammatory process is noted. The chest wall is intact.Limited images of the upper abdomen are remarkable for a prior gastric bypass. The gallbladder is surgically absent. IMPRESSION: No mass or localized inflammatory process. Reviewed, Interpreted and Dictated by Mitul Rey III, MD Transcribed by Margret Tee Authenticated and [facility]
[2024-01-10 15:20] VITALS: PULSE 89
[2024-01-10] MEDS: ALBUTEROL 0.083% 2.5 MG/3 ML NEB IH (15:20)
== END 2024-01-10 23:59 | disposition home or self-care (01) ==
LOC: RAD 14:04
PROVIDERS: PCP Internal Medicine Adolescent Medicine; Visit Provider Internal Medicine Pulmonary Disease
DX: R91.8 Other nonspecific abnormal finding of lung field (principal); R06.02 Shortness of breath
CPT/HCPCS: 71250; 94060; 94618; 94640; 94726; 94729

== ENCOUNTER 2024-08-04 11:22 | Emergency (ER) | payer BC, SELFPAY ==
--- NOTE | 2024-08-04 12:06 | EXP.UTC ---
Discharge Plan Disposition Patient Disposition: Home, Self-Care Condition: Good Prescriptions Prescriptions: New azithromycin [Zithromax] 250 mg tablet 250 mg PO UD DOSE PK Qty: 6 0RF Rx Instructions: Take two (2) tablets today, then one (1) tablet days #2 thru #5 benzonatate 100 mg capsule 100 mg PO TIDP PRN (Reason: Cough) Qty: 30 0RF methylprednisolone 4 mg Tablets,Dose Pack 4 mg PO DIRECTED 6 Days Qty: 21 0RF Rx Instructions: Take 1 pack as directed for 6 days ipratropium-albuterol 0.5 mg-3 mg(2.5 mg base)/3 mL solution for nebulization 3 ml inhalation QID PRN (Reason: wheezing) Qty: 180 0RF azithromycin [Zithromax] 250 mg tablet 250 mg PO UD DOSE PK Qty: 6 0RF Rx Instructions: Take two (2) tablets today, then one (1) tablet days #2 thru #5 benzonatate 100 mg capsule 100 mg PO TIDP PRN (Reason: Cough) Qty: 30 0RF methylprednisolone 4 mg Tablets,Dose Pack 4 mg PO DIRECTED 6 Days Qty: 21 0RF Rx Instructions: Take 1 pack as directed for 6 days No Action albuterol sulfate 90 mcg/actuation HFA aerosol inhaler 2 puff inhalation Q6H PRN (Reason: Asthma) melatonin 10 mg tablet,chewable 10 mg PO DAILY budesonide-formoterol [Symbicort] 160-4.5 mcg/actuation HFA aerosol inhaler 2 puff inhalation BID 90 Days Qty: 10.2 2RF peg 3350-electrolytes [GaviLyte-G] 236-22.74-6.74 -5.86 gram recon soln 240 ml PO Q10M Qty: 4000 0RF Rx Instructions: follow mailed instructions levothyroxine [Synthroid] 25 MCG tablet 25 mcg PO DAILY montelukast 10 MG tablet 10 mg PO PM bupropion HCl [Wellbutrin XL] 150 MG tablet extended release 24 hr 150 mg PO DAILY Folgard 1 EACH tablet 1 ea PO DAILY ipratropium-albuterol 3 ML solution for nebulization 3 ml inhalation Q6HP PRN (Reason: Shortness Of Breath) 5 Days Qty: 120 0RF hydrochlorothiazide 25 mg tablet 25 mg PO DAILY Referrals Follow up/Referrals: Connor Durbin MD [Primary Care Provider] - See instructions Activity Restrictions/Add. Instructions Additional Instructions/Restrictions: Drink plenty of fluids. Take tylenol or ibuprofen for pain or fever. Take the medications as directed. Follow up with your regular doctor. GO TO THE ER FOR ANY WORSENING SYMPTOMS Clinical Impressions Clinical Impression: Asthma exacerbation, Acute viral syndrome Instructions Patient Instructions: DI for Asthma -- Adult, DI for Viral Syndrome Print Language Print Language: Nigerien Discharge ED Provider: Margarito Bass [facility] HPI General Stated complaint: wheezing, diff breathing Time Seen by Provider: 08/04/24 12:06 Related Data Home Medications ?Medication ?Instructions ?Recorded ?Confirmed bupropion HCl 150 mg 24 hr tablet, 150 mg PO DAILY Depression 11/28/17 01/17/24 extended release (Wellbutrin XL) levothyroxine 25 mcg tablet 25 mcg PO DAILY THYROID 11/28/17 01/17/24 (Synthroid) montelukast 10 mg tablet 10 mg PO PM Allergy symptoms 11/28/17 01/17/24 vit D3-folic acid-vit B2-B6-B12 1 ea PO DAILY PREVENT 11/28/17 01/17/24 2,000 unit-800 mcg-0.32 mg tablet (Folgard) albuterol sulfate 90 mcg/actuation 2 puff inhalation Q6H PRN Asthma 11/25/23 01/17/24 aerosol inhaler melatonin 10 mg chewable tablet 10 mg PO DAILY 11/25/23 01/17/24 hydrochlorothiazide 25 mg tablet 25 mg PO DAILY 12/02/23 01/17/24 Previous Rx's ?Medication ?Instructions ?Recorded ipratropium 0.5 mg-albuterol 3 mg 3 ml inhalation Q6HP PRN Shortness 07/10/19 (2.5 mg base)/3 mL nebulization Of Breath 5 days #120 neb soln peg 3350-electrolytes 236 240 ml PO Q10M Bowel Prep #4,000 mL 11/18/23 gram-22.74 gram-6.74 gram-5.86 gram solution (GaviLyte-G) budesonide-formoterol HFA 160 2 puff inhalation BID 90 days 01/17/24 mcg-4.5 mcg/actuation aerosol #10.2 grams inhaler (Symbicort) azithromycin 250 mg tablet 250 mg PO UD DOSE PK #6 tabs 08/04/24 (Zithromax) azithromycin 250 mg tablet 250 mg PO UD DOSE PK #6 tabs 08/04/24 (Zithromax) benzonatate 100 mg capsule 100 mg PO TIDP PRN Cough #30 caps 08/04/24 benzonatate 100 mg capsule 100 mg PO TIDP PRN Cough #30 caps 08/04/24 ipratropium 0.5 mg-albuterol 3 mg 3 ml inhalation QID PRN wheezing 08/04/24 (2.5 mg base)/3 mL nebulization #180 mL soln methylprednisolone 4 mg tablets in 4 mg PO DIRECTED 6 days #21 tabs 08/04/24 a dose pack methylprednisolone 4 mg tablets in 4 mg PO DIRECTED 6 days #21 tabs 08/04/24 a dose pack Allergies Allergy/AdvReac Type Severity Reaction Status Date / Time moxifloxacin (From AVELOX) Allergy Mild Verified 01/17/24 10:37 [facility] Disclaimer: The information contained in this section may have been updated after the patient was seen, as this information can be updated by other users. Medical History Pneumonia Bronchitis Asthma Sinus headache Anxiety and depression History of gastroesophageal reflux (GERD) Hemorrhoid Hypothyroid Allergies Surgical History H/O gastric sleeve History of cholecystectomy Family History Other Asthma Cancer Hypertension Social History (Updated 01/17/24 @ 10:38 by Christine Knox) Smoking Status: Never smoker second hand exposure: No alcohol intake: current substance use type: denies use current occupational status: employed Travel in the last 8 weeks: Inside the [place] household members: spouse housing: house Have you lived/traveled outside [place] in past 30 days?: No Contact w/someone who lives/traveled outside [place] past 30 days?: No Exposure to someone with infectious disease in past 14 days?: No Do you have a fever (greater than 100.4 F or 38 C)?: No Have you tested positive for COVID-19: No Exposed to someone with COVID-19 in past 14 days?: No Do you have a sore throat?: No Do you have a cough?: No Do you have any weakness?: No Do you have any diarrhea?: No Are you experiencing any unusual bleeding?: No Do you have any muscle aches/pain?: No Do you have any abdominal pain?: No Are you experiencing loss of taste or smell?: No ROS Obtained: Yes All systems reviewed & no additional complaints except as documented Constitutional Constitutional: Reports chills and Reports fever(s) Eyes Eyes: Denies eye discharge ENT Ears, Nose, Mouth, and Throat: Reports as per HPI Cardiovascular Cardiovascular: Denies chest pain Respiratory Respiratory: Denies chest congestion and Reports cough Gastrointestinal Gastrointestingal: Reports nausea; Denies abdominal pain, constipation, cramping, diarrhea or vomiting Musculoskeletal Musculoskeletal: Denies arthralgias Integumentary/Breasts Skin/Breast: Denies rash Neurologic Neurologic: Denies paresthesias Physical Exam General General appearance: alert and in no apparent distress Head Head exam: atraumatic, normocephalic and normal inspection Eye Eye exam: Present normal appearance; Absent PERRL or EOMI ENT ENT exam: Present mucous membranes moist and normal external ear exam Expanded ENT Exam TM/Canal exam: Bilateral TM: erythema, bulging and effusion Nose exam: Absent sinus tenderness Nasal speculum exam: Bilateral: normal Mouth exam: Present normal external inspection and other; Absent drooling Teeth exam: Present normal inspection Throat exam: Present tonsillar erythema and tonsillomegaly Neck Neck exam: Present normal inspection, full ROM and trachea midline; Absent tenderness, meningismus or lymphadenopathy Chest Chest inspection: Present normal inspection and symmetric chest wall rise; Absent tenderness Respiratory Respiratory exam: Present normal lung sounds bilaterally; Absent respiratory distress, wheezes or stridor Cardiovascular Cardiovascular exam: Present regular rate, normal rhythm and normal heart sounds; Absent tachycardia or irregular rhythm Abdominal Exam Abdominal exam: Present soft and normal bowel sounds; Absent distention, tenderness, guarding, rebound or rigidity Extremities Exam Extremities exam: Present normal inspection and normal capillary refill; Absent tenderness, joint swelling or calf tenderness Back Exam Back exam: Present normal inspection and full ROM; Absent tenderness, CVA tenderness (R) or CVA tenderness (L) Neurological Exam Neurological exam: Present alert, oriented X3, CN II-XII intact, normal gait and reflexes normal; Absent motor sensory deficit Psychiatric Psychiatric exam: Present normal affect and normal mood Skin Skin exam: Present warm, dry, intact and normal color Lymphatic Lymphatic Findings: no adenopathy Medical Decision Making Medical Records Medical records reviewed: No I reviewed the patient's medical records. Screening: Per USPSTF and CDC recommendations, given the prevalence of disease in our region, it is our hospital?s policy to screen for HIV and viral Hepatitis for all patients aged 18 and over and those with ongoing risk factors. Flex Inquiry Pt receiving controlled substance: No Lab Data Lab results reviewed: Yes I reviewed the patient's lab results.
[2024-08-04 12:13] VITALS: BP 165/75; PULSE 84; RESP 18; TEMP 36.8; O2SAT 98; BMI 49.6
[2024-08-04 12:29] LABS: Coronavirus 19, PCR Not Detected (NotDetected); Influenza A, PCR Not Detected (NotDetected); Influenza B, PCR Not Detected (NotDetected)
[2024-08-04 12:57] VITALS: BP 165/75; PULSE 84; RESP 18; TEMP 36.8
== END 2024-08-04 12:57 | disposition home or self-care (01) ==
PROVIDERS: Emergency Provider Nurse Practitioner Family; PCP Internal Medicine Adolescent Medicine
DX: J45.901 Unspecified asthma with (acute) exacerbation (principal); B34.9 Viral infection, unspecified; R50.9 Fever, unspecified
CPT/HCPCS: 87636; 99212; G0381

== ENCOUNTER 2025-01-26 08:36 | Emergency (ER) | payer BC, SELFPAY ==
--- OUTSIDE RECORDS SUMMARY | 2025-01-26 08:45 | XMS_ITS ---
Author Organization Unknown Medications Medication Instructions Effective Dates (start - stop) Status levothyroxine sodium 0.025 M G Oral Tablet [Synthroid] [id number]:00:00.000+00 :00 - Completed levothyroxine sodium 0.025 M G Oral Tablet [Synthroid] [id number]:00:00.000+00 :00 - Completed albuterol 0.83 MG/ML Inhalat ion Solution [id number]:00:00.000+00 :00 - Completed prednisone 20 MG Oral Tablet 09-19-30:00:00.000+00 :00 - Completed - [id number]:00 :00.000+00 :00 - Completed fluconazole 150 MG Oral Tablet [id number]:00:00.000+00 :00 - Completed [id number] 200 ACTUAT albuter ol 0.09 MG/ACTUAT Metered Dose Inhaler [id number]:00:00.000 +00 :00 - Completed levothyroxine sodium 0.025 M G Oral Tablet [Synthroid] [id number]:00:00.000+00 :00 - Completed levothyroxine sodium 0.025 M G Oral Tablet [Synthroid] [id number]:00:00.000+00 :00 - Completed nystatin 170659 UNT/ML Oral Suspension [id number]:00:00.000+00 :00 - Completed 24 HR bupropion hydrochlorid e 150 MG Extended Release Oral Tablet [id number]:00:00.000+0 0 :00 - Completed 24 HR bupropion hydrochlorid e 300 MG Extended Release Oral Tablet [id number]:00:00.000+0 0 :00 - Completed montelukast 10 MG Oral Tablet 03-09-14:00:00.000+00 :00 - Completed prednisone 20 MG Oral Tablet 09-21-18:00:00.000+00 :00 - Completed hydrochlorothiazide 25 MG Or al Tablet [id number]:00:00.000+00 :00 - Completed hydrochlorothiazide 25 MG Or al Tablet [id number]:00:00.000+00 :00 - Completed montelukast 10 MG Oral Tablet 02-03-26:00:00.000+00 :00 - Completed montelukast 10 MG Oral Tablet 03-12-27:00:00.000+00 :00 - Completed hydrochlorothiazide 25 MG Or al Tablet [id number]:00:00.000+00 :00 - Completed hydrochlorothiazide 25 MG Or al Tablet [id number]:00:00.000+00 :00 - Completed prednisone 20 MG Oral Tablet 09-19-21:00:00.000+00 :00 - Completed doxycycline monohydrate 100 MG Oral Capsule [id number]:00:00.000+00 :00 - Completed montelukast 10 MG Oral Tablet 02-06-24:00:00.000+00 :00 - Completed benzonatate 100 MG Oral Capsule [id number]:00:00.000+00 :00 - Completed {6 (azithromycin 250 MG Oral Tablet) } Pack [id number]:00:00.000+00 :00 - Completed 120 ACTUAT budesonide 0.16 M G/ACTUAT / formoterol fumarate 0.0045 MG/ACTUAT Metered Dose Inhaler [Symbicort] [id number]:00:00.000+00 :00 - Completed dextromethorphan hydrobromid e 3 MG/ML / promethazine hydrochloride 1.25 MG/ML Oral Solution [id number]:00:00.000+00 :00 - Completed amoxicillin 875 MG / clavula coleman 125 MG Oral Tablet [id number]:00:00.000+00 :00 - Completed dextromethorphan hydrobromid e 3 MG/ML / promethazine hydrochloride 1.25 MG/ML Oral Solution [id number]:00:00.000+00 :00 - Completed 120 ACTUAT budesonide 0.16 M G/ACTUAT / formoterol fumarate 0.0045 MG/ACTUAT Metered Dose Inhaler [Symbicort] [id number]:00:00.000+00 :00 - Completed 120 ACTUAT budesonide 0.16 M G/ACTUAT / formoterol fumarate 0.0045 MG/ACTUAT Metered Dose Inhaler [Symbicort] [id number]:00:00.000+00 :00 - Completed 120 ACTUAT budesonide 0.16 M G/ACTUAT / formoterol fumarate 0.0045 MG/ACTUAT Metered Dose Inhaler [Symbicort] [id number]:00:00.000+00 :00 - Completed Patient Care team information Name Category Status Period Participants - - Proposed period not known -
[2025-01-26 08:46] VITALS: BP 205/93; PULSE 94; RESP 20; TEMP 36.5; O2SAT 95; BMI 52.2
--- NOTE | 2025-01-26 08:51 | ECG_ITS ---
APPROVED REPORT Exam: Resting ECG HR:70 bpm ECG Measurements Heart Rate 70 AXES NC 176 P 59 QRSd 78 QRS 32 QT 359 T 68 QTc 379 Conclusion SINUS RHYTHM LOW QRS VOLTAGE IN PRECORDIAL LEADS [QRS DEFLECTION < 1.0 mV IN CHEST LEADS] ANTERIOR MYOCARDIAL INFARCTION , PROBABLY OLD [40+ ms Q WAVE AND/OR ST/T ABNORMALITY IN V3/V4] Electronically signed by : HERMANN NOONAN, 01/26/2025 15:21:03
--- NOTE | 2025-01-26 08:59 | HMH.EDGENADL ---
Discharge Plan Disposition Patient Disposition: Home, Self-Care Condition: Good Prescriptions Prescriptions: No Action albuterol sulfate 90 mcg/actuation HFA aerosol inhaler 2 puff inhalation Q6H PRN (Reason: Asthma) melatonin 10 mg tablet,chewable 10 mg PO DAILY budesonide-formoterol [Symbicort] 160-4.5 mcg/actuation HFA aerosol inhaler 2 puff inhalation BID 90 Days Qty: 10.2 2RF peg 3350-electrolytes [GaviLyte-G] 236-22.74-6.74 -5.86 gram recon soln 240 ml PO Q10M Qty: 4000 0RF Rx Instructions: follow mailed instructions levothyroxine [Synthroid] 25 MCG tablet 25 mcg PO DAILY montelukast 10 MG tablet 10 mg PO PM bupropion HCl [Wellbutrin XL] 150 MG tablet extended release 24 hr 150 mg PO DAILY Folgard 1 EACH tablet 1 ea PO DAILY ipratropium-albuterol 3 ML solution for nebulization 3 ml inhalation Q6HP PRN (Reason: Shortness Of Breath) 5 Days Qty: 120 0RF hydrochlorothiazide 25 mg tablet 25 mg PO DAILY azithromycin [Zithromax] 250 mg tablet 250 mg PO UD DOSE PK Qty: 6 0RF Rx Instructions: Take two (2) tablets today, then one (1) tablet days #2 thru #5 benzonatate 100 mg capsule 100 mg PO TIDP PRN (Reason: Cough) Qty: 30 0RF methylprednisolone 4 mg Tablets,Dose Pack 4 mg PO DIRECTED 6 Days Qty: 21 0RF Rx Instructions: Take 1 pack as directed for 6 days ipratropium-albuterol 0.5 mg-3 mg(2.5 mg base)/3 mL solution for nebulization 3 ml inhalation QID PRN (Reason: wheezing) Qty: 180 0RF azithromycin [Zithromax] 250 mg tablet 250 mg PO UD DOSE PK Qty: 6 0RF Rx Instructions: Take two (2) tablets today, then one (1) tablet days #2 thru #5 benzonatate 100 mg capsule 100 mg PO TIDP PRN (Reason: Cough) Qty: 30 0RF methylprednisolone 4 mg Tablets,Dose Pack 4 mg PO DIRECTED 6 Days Qty: 21 0RF Rx Instructions: Take 1 pack as directed for 6 days Referrals Follow up/Referrals: [place] Saleh APRN [Primary Care Provider, Medical] - See instructions Donny Huynh MD [Staff Physician, Cardiology] - See instructions Activity Restrictions/Add. Instructions Additional Instructions/Restrictions: You were evaluated in the emergency department today. As we discussed, we recommended staying here for a second troponin or heart enzyme to rule out heart attack or stress/strain on your heart as a cause of your symptoms, however since you are electing to leave, it is very important that you return right away if you experience new or worsening symptoms. Please follow-up closely with your primary care provider. I am also providing information for cardiology if you wish to schedule follow-up with them just to make sure this was not heart related. Clinical Impressions Clinical Impression: Acute epigastric pain Stand Alone Forms Stand Alone Forms: Work/School Release Instructions Patient Instructions: DI for Acute Abdominal Pain, DI for Chest Pain Print Language Print Language: [place] Discharge ED Provider: Xi Farris General Adult HPI General Chief complaint: Abdominal Pain Stated complaint: Sharp abd. pain, Jaw pain Time Seen by Provider: 01/26/25 08:41 Mode of Arrival: Ambulatory Source of Information: Patient Description of Symptoms (Recalled from ER Triage Doc. by RN): Patient presents to ED from home with c/o gripping upper abdominal pain and lower jaw pain taht started this AM. Denies any additional symptoms. History of Present Illness HPI narrative: This patient is a 59-year-old female with a history of asthma and obesity presenting to the emergency department for evaluation with concern for gripping pain in her upper abdomen that radiated to her lower jaw that started acutely at 8 AM this morning while she was at work. She notes that it resolved spontaneously after she got up and walked around and took some Advil. She states that she is never experienced pain like this in the past. She states that it was really severe and it was very concerning, causing her to go into a panic. She denies any associated she was feeling fine this morning prior to onset of this while at work. No other concerns or complaints noted currently and she is feeling better as of right now. Nausea, vomiting, changes in bowel movements. She had not yet ate or drink anything this morning except for some sips of water to take her morning medication. Patient is status post gastric sleeve and cholecystectomy. Related Data Home Medications ?Medication ?Instructions ?Recorded ?Confirmed bupropion HCl 150 mg 24 hr tablet, 150 mg PO DAILY Depression 11/28/17 01/17/24 extended release (Wellbutrin XL) levothyroxine 25 mcg tablet 25 mcg PO DAILY THYROID 11/28/17 01/17/24 (Synthroid) montelukast 10 mg tablet 10 mg PO PM Allergy symptoms 11/28/17 01/17/24 vit D3-folic acid-vit B2-B6-B12 1 ea PO DAILY PREVENT 11/28/17 01/17/24 2,000 unit-800 mcg-0.32 mg tablet (Folgard) albuterol sulfate 90 mcg/actuation 2 puff inhalation Q6H PRN Asthma 11/25/23 01/17/24 aerosol inhaler melatonin 10 mg chewable tablet 10 mg PO DAILY 11/25/23 01/17/24 hydrochlorothiazide 25 mg tablet 25 mg PO DAILY 12/02/23 01/17/24 Previous Rx's ?Medication ?Instructions ?Recorded ipratropium 0.5 mg-albuterol 3 mg 3 ml inhalation Q6HP PRN Shortness 07/10/19 (2.5 mg base)/3 mL nebulization Of Breath 5 days #120 neb soln peg 3350-electrolytes 236 240 ml PO Q10M Bowel Prep #4,000 mL 11/18/23 gram-22.74 gram-6.74 gram-5.86 gram solution (GaviLyte-G) budesonide-formoterol HFA 160 2 puff inhalation BID 90 days 01/17/24 mcg-4.5 mcg/actuation aerosol #10.2 grams inhaler (Symbicort) azithromycin 250 mg tablet 250 mg PO UD DOSE PK #6 tabs 08/04/24 (Zithromax) azithromycin 250 mg tablet 250 mg PO UD DOSE PK #6 tabs 08/04/24 (Zithromax) benzonatate 100 mg capsule 100 mg PO TIDP PRN Cough #30 caps 08/04/24 benzonatate 100 mg capsule 100 mg PO TIDP PRN Cough #30 caps 08/04/24 ipratropium 0.5 mg-albuterol 3 mg 3 ml inhalation QID PRN wheezing 08/04/24 (2.5 mg base)/3 mL nebulization #180 mL soln methylprednisolone 4 mg tablets in 4 mg PO DIRECTED 6 days #21 tabs 08/04/24 a dose pack methylprednisolone 4 mg tablets in 4 mg PO DIRECTED 6 days #21 tabs 08/04/24 a dose pack Allergies Allergy/AdvReac Type Severity Reaction Status Date / Time moxifloxacin (From AVELOX) Allergy Mild Verified 01/17/24 10:37 [facility] Disclaimer: The information contained in this section may have been updated after the patient was seen, as this information can be updated by other users. Medical History Pneumonia Bronchitis Asthma Sinus headache Anxiety and depression History of gastroesophageal reflux (GERD) Hemorrhoid Hypothyroid Allergies Surgical History H/O gastric sleeve History of cholecystectomy Family History Other Asthma Cancer Hypertension Social History Smoking Status: Never smoker second hand exposure: No alcohol intake: current substance use type: denies use current occupational status: employed Travel in the last 8 weeks?: Inside the [place] household members: spouse housing: house Have you lived/traveled outside [place] in past 30 days?: No Contact w/someone who lives/traveled outside [place] past 30 days?: No Exposure to someone with infectious disease in past 14 days?: No Do you have a fever (greater than 100.4 F or 38 C)?: No Have you tested positive for COVID-19?: No Exposed to someone with COVID-19 in past 14 days?: No Do you have a sore throat?: No Do you have a cough?: No Do you have any weakness?: No Do you have any diarrhea?: No Are you experiencing any unusual bleeding?: No Do you have any muscle aches/pain?: No Do you have any abdominal pain?: No Are you experiencing loss of taste or smell?: No Other Medical History Have you received the Flu Vaccine for this season: No Have you received the Pneumonia Vaccine: No ROS Obtained: Yes All systems reviewed & no additional complaints except as documented Physical Exam General General appearance: alert and in no apparent distress Head Head exam: atraumatic and normocephalic Eye Eye exam: Present normal appearance, PERRL and EOMI ENT ENT exam: Present normal exam, normal oropharynx, mucous membranes moist and normal external ear exam Neck Neck exam: Present normal inspection, full ROM and trachea midline; Absent tenderness Chest Chest inspection: Present normal inspection and symmetric chest wall rise; Absent tenderness Respiratory Respiratory exam: Present normal lung sounds bilaterally; Absent respiratory distress, wheezes, stridor or accessory muscle use Cardiovascular Cardiovascular exam: Present regular rate and normal rhythm Abdominal Exam Abdominal exam: Present soft; Absent distention, tenderness or guarding Extremities Exam Extremities exam: Present normal inspection, full ROM and normal capillary refill; Absent tenderness or edema Back Exam Back exam: Present normal inspection and full ROM; Absent tenderness Neurological Exam Neurological exam: Present alert, oriented X3, CN II-XII intact and normal gait; Absent motor sensory deficit Psychiatric Psychiatric exam: Present normal affect and normal mood Skin Skin exam: Present warm and dry Medical Decision Making Medical Records Medical records reviewed: Yes I reviewed the patient's medical records. Screening: Per USPSTF and CDC recommendations, given the prevalence of disease in our region, it is our hospital?s policy to screen for HIV and viral Hepatitis for all patients aged 18 and over and those with ongoing risk factors. Flxe Inquiry Pt receiving controlled substance: No Vital Signs: 01/26/25 08:46 01/26/25 09:02 01/26/25 09:03 Temperature 97.7 F Temperature Source Oral Pulse Rate 79 Pulse Rate [Left Radial] 94 H Respiratory Rate 20 16 19 Blood Pressure 182/93 H 182/93 H Blood Pressure [Right Arm] 205/93 H Blood Pressure Mean Blood Pressure Mean [Right Arm] 130 Blood Pressure Source [Right Arm] Automatic Cuff Blood Pressure Position Sitting 02 Sat by Pulse Oximetry 95 97 Oxygen Delivery Method Room Air Room Air 01/26/25 09:30 01/26/25 10:06 Temperature 97.7 F Temperature Source Oral Pulse Rate 65 65 Pulse Rate [Left Radial] Respiratory Rate 16 19 Blood Pressure 160/91 H 162/78 H Blood Pressure [Right Arm] Blood Pressure Mean 114 Blood Pressure Mean [Right Arm] Blood Pressure Source [Right Arm] Blood Pressure Position Sitting 02 Sat by Pulse Oximetry 96 Oxygen Delivery Method Room Air Room Air Lab Data Lab results reviewed: Yes I reviewed the patient's lab results. Lab Results 01/26/25 08:41: WBC 10.1, RBC 5.48 H, Hgb 14.6, Hct 46.0, MCV 83.9, MCH 26.6 L, MCHC 31.7 L, RDW 15.1, Plt Count 396, MPV 9.6, Neut % (Auto) 52.1, Lymph % (Auto) 37.8, [place] % (Auto) 6.3, Eos % (Auto) 3.2, Baso % (Auto) 0.3, Neut # (Auto) 5.3, Lymph # (Auto) 3.8, [place] # (Auto) 0.6, Eos # (Auto) 0.3, Baso # (Auto) 0.0, Sodium 137, Potassium 4.1, Chloride 103, Carbon Dioxide 30, Anion Gap 8.1, BUN 16, Creatinine 0.70, Estimated Creat Clear 69, Estimated GFR 86, Est GFR ( Amer) 104, Glucose 94, Calcium 11.4 H, Total Bilirubin 0.6, AST 30, ALT 24, Alkaline Phosphatase 107, Troponin I < 0.01, Total Protein 8.1, Albumin 4.5, Globulin 3.6 H, Albumin/Globulin Ratio 1.3, Lipase 46 01/26/25 08:41 01/26/25 08:41 Orders (Tests/Meds): ORDERS Category Date Time Status Complete Blood Count Auto Diff Stat Lab 01/26/25 08:41 Completed Comprehensive Metabolic Panel Stat Lab 01/26/25 08:41 Completed Lipase Stat Lab 01/26/25 08:41 Completed Trop I [Troponin I] Stat Lab 01/26/25 08:41 Completed ECG Data Tracing #1: I reviewed this ECG and interpreted as documented below: Normal sinus rhythm with a ventricular rate of [address] changes concerning for STEMI. Normal intervals. ECG initial impression date: 01/26/25 ECG initial impression time: 08:52 HEART Score History (anamnesis): Slightly suspicious ECG: Normal Age: 45-65 years Risk factors: 1-2 risk factors Troponin: </= normal limit HEART Score: 2 Medical Decision Narrative: In summary, this patient is a 59-year-old female presenting to the Emergency Department for evaluation of a transient episode of upper abdominal cramping pain that radiated to her jaw that happened this morning at 8 AM and resolved spontaneously prior to arrival.. Differential diagnoses considered include but are not limited to ACS, dysrhythmia, GERD, diaphragmatic spasms, esophageal spasms. Ruling out the most morbid conditions drove assessment. It should be noted patient's history includes obesity, asthma which may or may not be at goal therapy. This complicates all aspects of care by increasing patient's risk for morbidity. I reviewed patient's past medical records and noted prior pulmonology visits in the setting of chronic asthma. On exam, the patient is sitting upright in no acute distress. Blood pressure is elevated with systolic in the low 200s, but she states that she thinks she was panicked because of the pain. She is currently symptom-free and feeling much better. She did take Advil prior to arrival. She is nontachycardic, nontachypneic, nonhypoxic. No recent travel, surgery, immobilization, calf pain or swelling, or other alarm symptoms/history that would suggest PE. Workup included CBC, CMP, lipase, troponin, EKG.. On reassessment, patient is resting comfortably and states that she still feeling fine with no recurrence of symptoms. CBC is reassuring with no significant leukocytosis or anemia, chemistry is reassuring with negative troponin, normal liver enzymes, normal lipase. I recommended to the patient that she should stay for a second troponin, as it takes a while before troponins become elevated in the bloodstream in the setting of acute cardiac stress. She states that she is feeling fine and thinks that it was likely just anxiety/panic and she wants to go home. She advised that she will come back right away if symptoms worsen. Given this, patient was discharged via patient directed discharge with instructions for close follow-up with PCP and strict return precautions. Critical Care Critical Care Time Critical Care Time: No
[2025-01-26 09:02] VITALS: BP 182/93; RESP 16
[2025-01-26 09:02] LABS: Basophils % 0.3 % (0.1-2.0); Eosinophils # 0.3 Kmm3 (0.0-0.4); Eosinophils % 3.2 % (0.1-12.0); Hemoglobin 14.6 g/dL (12.2-16.2); Immature Granulocytes # 0.03 10^3uL; Immature Granulocytes % 0.3 %; Lymphocytes # 3.8 K/mm3 (0.7-4.5); Lymphocytes % 37.8 % (10-50); Mean Corpuscular HGB Conc 31.7 g/dL (31.8-35.4); Mean Corpuscular Hemoglobin 26.6 pg (27.0-31.2); Mean Corpuscular Volume 83.9 fl (81-99); Mean Platelet Volume 9.6 fl (7.4-10.4); Monocytes # 0.6 K/mm3 (0.1-1.0); Monocytes % 6.3 % (1.7-9.3); Neutrophils # 5.3 K/mm3 (1.8-7.8); Neutrophils % 52.1 % (37.0-80.0); Nucleated Red Blood Cells # 0 10^3/uL; Nucleated Red Blood Cells % 0 %; Platelet Count 396 K/mm3 (142-424); Red Blood Count 5.48 M/mm3 (4.20-5.40); Red Cell Distribution Width 15.1 % (11.5-17.5); White Blood Count 10.1 K/mm3 (4.8-10.8)
[2025-01-26 09:03] VITALS: BP 182/93; PULSE 79; RESP 19; O2SAT 97
[2025-01-26 09:05] LABS: Chloride 103 mmol/L (98-107)
[2025-01-26 09:06] LABS: Albumin Level 4.5 g/dl (3.5-5.0); Potassium 4.1 mmoL/L (3.5-5.1); Sodium 137 mmol/L (136-145)
[2025-01-26 09:09] LABS: Alanine Aminotransferase 24 U/L (12-78); Albumin/Globulin Ratio 1.3 (1.1-1.8); Alkaline Phosphatase 107 U/L (38-126); Anion Gap 8.1 mEq/L (5-15); Aspartate Amino Transferase 30 U/L (14-36); Bilirubin,Total 0.6 mg/dl (0.2-1.3); Blood Urea Nitrogen 16 mg/dl (7-17); Calcium 11.4 mg/dl (8.4-10.2); Carbon Dioxide 30 mmol/L (22.0-30.0); Creatinine Clearance Estimated 69 mL/min (50-200); Estimated Glomerular Filt Rate 86 ml/min (>60); GFR (African American) 104 ML/MIN (>60); Globulin 3.6 g/dL (1.3-3.2); Glucose 94 mg/dl (74-100); Lipase 46 U/L (23-300); Total Protein,Serum 8.1 g/dl (6.3-8.2)
[2025-01-26 09:22] LABS: Troponin I < 0.01 ng/ml (0.00-0.034)
[2025-01-26 09:30] VITALS: BP 160/91; PULSE 65; RESP 16; O2SAT 96
[2025-01-26 10:06] VITALS: BP 162/78; PULSE 65; RESP 19; TEMP 36.5; O2SAT 97
== END 2025-01-26 10:10 | disposition home or self-care (01) ==
PROVIDERS: Emergency Provider Emergency Medicine; PCP Nurse Practitioner Family
DX: R10.13 Epigastric pain (principal); R68.84 Jaw pain
CPT/HCPCS: 80053; 83690; 84484; 85025; 93005; 99283

== ENCOUNTER 2025-05-26 07:52 | Outpatient (CLI) | payer BC, SELFPAY ==
--- NOTE | 2025-05-26 07:54 | MM_ITS ---
PROCEDURE INFORMATION: Exam: MG Bilateral Screening 3D Mammography Exam date and time: 05/26/2025 8:01 AM Age: 59 years old Clinical indication: Screening examination TECHNIQUE: Imaging protocol: Bilateral Screening tomosynthesis and 2D mammography including computer-aided detection (CAD) when performed. COMPARISON: 1. MG [facility] DIAG MAMMO W/CAD RT 01/23/2024 9:53 AM 2. MG [facility] SCRN MAMMO W/CAD BILAT 01/16/2024 12:47 PM FINDINGS: MAMMOGRAPHY: Breast composition: There are scattered areas of fibroglandular density. Mass: No suspicious masses. Architectural distortion: None. Calcifications: No suspicious calcifications. Asymmetric density: None. Skin thickening: None. Axillary adenopathy: None. IMPRESSION: No mammographic evidence of malignancy. Annual screening is recommended unless otherwise clinically indicated. ASSESSMENT: BI-RADS Category 1: Negative.
== END 2025-05-26 23:59 | disposition home or self-care (01) ==
LOC: RAD 07:53
PROVIDERS: PCP Nurse Practitioner Family; Visit Provider Nurse Practitioner Family
DX: Z12.31 Encounter for screening mammogram for malignant neoplasm of breast (principal); R92.323 Mammographic fibroglandular density, bilateral breasts
CPT/HCPCS: 77063; 77067

== ENCOUNTER 2025-06-07 14:28 | Outpatient (CLI) | payer BC, SELFPAY ==
--- NOTE | 2025-06-07 14:31 | XR_ITS ---
FINAL REPORT TECHNIQUE: Chest PA & Lateral CLINICAL HISTORY: LOWER RESP. TRACT INFECTION wheezing, tightness, cough, soa, burning sensation COMPARISON: 05/29/2023 FINDINGS: 2 views of the chest were performed. The heart size is normal. The mediastinum is within normal limits. There is no acute cardiopulmonary process. Chronic scarring is noted at the lung bases. The previously noted left lower lobe atelectasis has resolved. There are no pleural effusions. There is no pneumothorax. The bony thorax appears intact. IMPRESSION: No acute cardiopulmonary process. Reviewed, Interpreted and Dictated by Jared Camara MD Transcribed by Dinorah Espinoza Authenticated and [facility]
== END 2025-06-07 23:59 | disposition home or self-care (01) ==
LOC: RAD 14:28
PROVIDERS: PCP Nurse Practitioner Family; Visit Provider Nurse Practitioner Family
DX: J22 Unspecified acute lower respiratory infection (principal); J45.901 Unspecified asthma with (acute) exacerbation
CPT/HCPCS: 71046

== ENCOUNTER 2025-08-03 08:36 | Outpatient (CLI) | payer BC, SELFPAY ==
[2025-08-03 14:53] LABS: Coronavirus 19, PCR Not Detected (NotDetected); Influenza A, PCR Not Detected (NotDetected); Influenza B, PCR Not Detected (NotDetected)
== END 2025-08-03 23:59 | disposition home or self-care (01) ==
LOC: LAB.DROPOF 08-06 08:37
PROVIDERS: PCP Nurse Practitioner Family; Visit Provider Student in an Organized Health Care Education/Training Program
DX: J06.9 Acute upper respiratory infection, unspecified (principal)
CPT/HCPCS: 87631